=== PATIENT | female | born 1970 | race Caucasian/White ===

== ENCOUNTER 2019-10-03 13:37 | Outpatient (CLI) | payer OTHER, SELFPAY ==
--- NOTE | 2019-10-03 | ECHO_ITS ---
Patient Info Name: Josie Vidales Age: 49 years : 1970 Gender: Female Ht: 64 in Wt: 170 lbs BSA: 1.89 m2 HR: 71 bpm BP: 106 / 64 mmHg Heart Rhythm: Sinus Rhythm Technical Quality: Good Exam Date: 10/03/2019 2:05 PM Exam Location: [facility] Room: echo lab Patient Status: Outpatient Admit Date: 10/03/2019 Staff Ordering Physician: Leonel Velasco MD Manager Filter: Karla South RDCS Attending Provider: Leonel Velasco MD Referring Physician: Krista BRO; Exam Type: CA echo doppler color flow Study Info Indications - HERCEPTIN TREATMENT BREAST CA Complete two-dimensional, color flow and Doppler transthoracic echocardiogram is performed. Summary 1. Left ventricular chamber dimension is normal. 2. Left ventricular systolic function is normal, estimated at 60-65%. 3. The left ventricular diastolic function is normal. 4. E/e' 8 is minimally elevated. 5. Global longitudinal strain is normal at -21.7%. 6. There is trace tricuspid valve regurgitation. 7. No pulmonary hypertension, estimated pulmonary arterial systolic pressure is 28 mmHg. 8. There is trace pulmonic regurgitation. Left Ventricle E/e' 8 is minimally elevated. Global longitudinal strain is normal at -21.7%. Left ventricular chamber dimension is normal. Left ventricular systolic function is normal, estimated at 60-65%. The left ventricular diastolic function is normal. Right Ventricle Right ventricular chamber dimension is normal. Right ventricular systolic function is normal. Left Atria Left atrial chamber dimension is normal. Right Atria Right atrial chamber dimension is normal. Aortic Valve The aortic valve is trileaflet. There is no aortic valve stenosis. There is no aortic valve regurgitation. Pulmonic Valve There is trace pulmonic regurgitation. Mitral Valve There is no mitral valve stenosis. There is no mitral valve regurgitation. Tricuspid Valve There is trace tricuspid valve regurgitation. No pulmonary hypertension, estimated pulmonary arterial systolic pressure is 28 mmHg. Pericardium/Pleural There is no pericardial effusion. Inferior Vena Cava Normal inferior vena cava with >50% collapse upon inspiration consistent with normal right atrial pressure, 5 mmHg. Aorta The aortic root size at the sinus of Valsalva is normal. Left Ventricular Outflow Tract Name Value Normal LVOT 2D LVOT Diameter 2.0 cm LVOT Doppler LVOT Peak Gradient 5 mmHg LVOT Mean Gradient 3 mmHg LVOT VTI 22 cm LVOT VTI/AV VTI Ratio 0.8 LVOT Stroke Volume 65 ml LVOT CO 13.6 l/min LVOT CI 7.2 l/min/m2 Pulmonic Valve Name Value Normal PV Doppler
== END 2019-10-03 13:38 | disposition home or self-care (01) ==
PROVIDERS: PCP Emergency Medicine; Visit Provider Internal Medicine Hematology & Oncology
DX: C50.811 Malignant neoplasm of overlapping sites of right female breast (principal); Z17.1 Estrogen receptor negative status [ER-]
CPT/HCPCS: 93306

== ENCOUNTER 2019-10-10 09:30 | Outpatient (RCR) | payer OTHER, SELFPAY ==
--- NOTE | 2019-09-16 15:11 | PTOPEVAL ---
PHYSICAL THERAPY EVALUATION AND PLAN OF CARE 09-16-2019 The PT evaluation was completed for the diagnosis of R breast and trunk lymphedema and neck pain. The plan of treatment is scheduled for 2x/week for 4 weeks. Thank you for referring Josie Vidales to [facility]. Please review, sign, date and return this plan of care BESSY. I agree with and certify that the following plan of care is medically necessary. Referring Physician Date Attending Provider: Chester Tucker MD CC: Dr. Emmanuelle Morley, per pt request *PT Outpatient Evaluation Document 09/16/19 13:50 KISHORE (Rec: 09/16/19 15:05 KISHORE [email or web address]) Therapy Assessment Status Assessment Status Assessment Status Evaluation Outpatient Past Medical History Past Medical History Source of Past Medical History Patient Neurological History Hx Neurological Disorders No Significant History Cardiovascular History Hx Cardiac Disorders No Significant History Respiratory History Hx Respiratory Disorders No Significant History Gastrointestinal History Hx Gastrointestinal Disorders No Significant History Genitourinary History Hx Genitourinary Disorders No Significant History Musculoskeletal History Hx Back Pain Yes Hx Other Musculoskeletal Disorders Yes: R subtalar fusion; C 5-6 fusion; HEENT History Hx Ear Surgery Yes: stents in tear ducts R and L eyes Evaluation Information Problem Diagnosis lymphedema Prior Level of Function Activity Level (Last 3 Months) 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 Right Activity of Daily Living Ability Independent Indoor/Home Mobility Independent Community Mobility Independent Stairs Ability Independent Functional Cognition (Planning, Shopping Independent , Taking Medications) Cooking Yes Cleaning Yes Laundry Yes Shopping Yes Driving Yes Home Setting Home Type House Living Situation With Minor Child,With Spouse Mobility Assistive Devices (Used Last 3 None Months) Comments Additional Prior Level of Function doing home tasks; working from Comments home due to coronavirus Pain Assessment Timing of Pain Assessment Timing of Pain Assessment Assessment Pain Scale Pain Scale Used Numeric (1 - 10) Self Report Pain Assessment Right Breast(s) Reported Pain Level 0 Pain Description Tender on Palpation Radicular Pain Location axilla and breast Pain Frequency Chronic Other Pain Description sore and tender to touch over
--- NOTE | 2019-10-03 15:45 | PCPTNOTE ---
today's appt canceled due to pt had herceptin treatment today;
--- NOTE | 2019-10-10 10:14 | PTOPEVAL ---
PHYSICAL THERAPY DISCHARGE 10-10-2019 Mrs. Vidales has received 7 PT sessions, from September 15 to today, for the diagnosis of breast lymphedema and neck pain. Compared to the initial evaluation: breast and trunk: pain rating has decreased, with decreased fibrosis over R breast, decreased trunk edema, less tenderness over breast--only area with fibrosis and tenderness is upper- outer breast and superior to node excision site; education has been completed with self lymph drainage and breast massage, skin precautions and she has a good compression bra and swell pad over lateral trunk. Her cervical pain rating is the same, with spasms over R and L cervical areas and pain with cervical rotation to the L and R; with the active rotation to the R has increased. She understanding good posture of her neck and shoulders and using heat, stretching and massage to decrease her neck pain. Deb states she has a follow up appointment with the neck surgeon in November. She agrees to discharge from PT services at this time. Thank you for referring Josie Vidales to [facility]. Please review, sign, date and return this discharge BESSY. I agree with and certify that the following plan of care is medically necessary. Referring Physician Date Attending Provider: Dr. Chester Tucker CC: Dr. Emmanuelle Morley, per pt request *PT Outpatient Discharge Document 10/10/19 09:32 KISHORE (Rec: 10/10/19 10:14 KISHORE [id number]) Subjective Information Deb reports: breast and Query Text:As Reported By Patient/ trunk are much better, not as Family painful and can move more; neck still painful and rotation hurts; doing self massage and home exercises for neck; agrees to discharge from PT services; has an appointment to see the neck surgeon in November; Pain Assessment Timing of Pain Assessment Timing of Pain Assessment Assessment Pain Scale Pain Scale Used Numeric (1 - 10) Self Report Pain Assessment Right Breast(s) Reported Pain Level 0 Pain Frequency Chronic Other Pain Description tenderness over knot on side of breast; no pain/tender in trunk Lowest Pain Intensity 0 Greatest Pain Intensity 2 Right Neck Reported Pain Level 4 Pain Description Soreness,Tightness Pain Frequency Continuous Other Pain Description bruised, tender; L > R cervical spine Lowest Pain Intensity 2 Greatest Pain Intensity 6 Other Pain Aggravating Factors rotation to L > R pain and stiffness Pain Behaviors Anxious,Grimacing Pain Score Pain Score 0,4: Self Report Cervical and Lumbar ROM Cervical ROM Cervical
== END 2019-10-11 08:31 | disposition home or self-care (01) ==
LOC: ANHPT 09:30
PROVIDERS: PCP Emergency Medicine; Visit Provider Radiology Radiation Oncology
DX: I89.0 Lymphedema, not elsewhere classified (principal); C50.811 Malignant neoplasm of overlapping sites of right female breast
CPT/HCPCS: 97012; 97140; 97162

== ENCOUNTER → 2019-12-17 13:46 | Outpatient (CLI) | payer OTHER, SELFPAY ==
--- NOTE | ~2019-12-17 | US_ITS ---
EXAMINATION:US venous doppler LE RT INDICATION:Right lower extremity swelling TECHNIQUE: Multiple grayscale, color flow and Doppler images of the right lower extremity deep venous systems were obtained and reviewed. COMPARISON:No prior studies for comparison. FINDINGS: The common femoral, superficial femoral and popliteal veins demonstrate normal respiratory variation, augmentation and compressibility. Color flow is also seen within the posterior tibial, pe roneal, greater saphenous and profunda veins. IMPRESSION: 1: No lower extremity deep venous thrombosis. Reviewed, dictated and finalized at location B.
== END ==
PROVIDERS: PCP Emergency Medicine; Visit Provider Internal Medicine Hematology & Oncology
DX: M79.89 Other specified soft tissue disorders (principal)
CPT/HCPCS: 93971

== ENCOUNTER 2020-01-14 08:14 | Outpatient (CLI) | payer OTHER, SELFPAY ==
[2020-01-14 09:08] LABS: Basophils Percent Auto 0.6 % (0.2-1.2); Eosinophils Absolute Auto 0.1 K/mm3 (0-0.3); Eosinophils Percent Auto 2.9 % (0-4.4); Hematocrit 40.5 % (37.0-47.0); Hemoglobin 13.5 g/dL (12.0-15.0); Immature Granulocyte Absolute 0.02 K/mm3 (0.00-0.031); Immature Granulocyte Percent A 0.4 % (0-0.5); Lymphocytes Absolute Auto 1.15 K/mm3 (0.9-3.2); Lymphocytes Percent Auto 23.6 % (18.3-44.2); Mean Corpuscular HGB Conc 33.3 g/dl (32-36); Mean Corpuscular Hemoglobin 29.8 pg (26-34); Mean Corpuscular Volume 89.4 fl (80-100); Mean Platelet Volume 10.6 fl (7.4-10.4); Monocytes Absolute Auto 0.4 K/mm3 (0.1-0.6); Monocytes Percent Auto 7.2 % (2.6-8.5); Neutrophils Absolute Auto 3.2 K/mm3 (1.3-6.7); Neutrophils Percent Auto 65.3 % (45.5-73.1); Platelet Count Result 169 k/mm3 (150-375); Red Blood Count 4.53 M/mm3 (4.2-5.4); Red Cell Distribution Width 12.4 % (11.5-14.5); White Blood Count 4.9 K/mm3 (4.5-10.0)
[2020-01-14 09:29] LABS: Alanine Aminotransferase 13 U/L (4-35); Albumin Level 4.3 g/dL (3.5-5.1); Alkaline Phosphatase 92 U/L (38-126); Anion Gap 7 mmol/L (8-16); Aspartate Amino Transferase 25 U/L (14-36); Bilirubin,Total 0.7 mg/dL (0.2-1.3); Blood Urea Nitrogen 17 mg/dL (7-17); Carbon Dioxide 25 mmol/L (22-30); Chloride 106 mmol/L (98-107); Estimated Glomerular Filt Rate > 60; Glucose 88 mg/dL (65-105); Sodium 138 mmol/L (137-145)
[2020-01-18 06:09] LABS: CA 27.29 42 U/mL (<38)
== END 2020-01-14 08:15 | disposition home or self-care (01) ==
PROVIDERS: PCP Emergency Medicine; Visit Provider Internal Medicine Hematology & Oncology
DX: C50.811 Malignant neoplasm of overlapping sites of right female breast (principal); Z17.1 Estrogen receptor negative status [ER-]
CPT/HCPCS: 36415; 80053; 85025; 86300

== ENCOUNTER 2020-01-28 08:07 | Outpatient (CLI) | payer OTHER, SELFPAY ==
--- NOTE | ~2020-01-28 | CT_ITS ---
EXAMINATION: CT chest abdomen pelvis w con DATE: 01/28/2020 08:35 INDICATION: Malignant neoplasm of overlapping sites of right breast. TECHNIQUE: Computed tomography (CT) of the chest, abdomen, and pelvis was performed with 100 mL Omnip aque 350 intravenous contrast. Automated exposure control and iterative reconstruction technique were employed. The dose-length product was 947.14 mGy-cm. COMPARISON: CT abdomen and pelvis 10/04/2018 FINDINGS: CHEST CT: There is mild scarring at the lung apices. There is mild radiation fibrosis in anterolateral right travis ng. No pleural effusion. The heart size is normal. No pericardial effusion. There are changes of righ t breast lumpectomy. There are surgical changes in right axilla. ABDOMEN/PELVIS CT: There are 4 mm and 5 mm cysts in the liver. The gallbladder is normal. There are cysts in the spleen measuring up to 11 mm. The pancreas, adrenal glands, and left kidney are normal. There is mild cortic al thinning of right kidney. There are no dilated loops of bowel. The appendix is normal. There are n o pathologically enlarged lymph nodes. There is no free intraperitoneal fluid. There is no osseous ma lignancy. IMPRESSION: 1. No evidence of metastatic disease. Reviewed, dictated and finalized at location B.
== END 2020-01-28 08:08 | disposition home or self-care (01) ==
PROVIDERS: PCP Emergency Medicine; Visit Provider Nurse Practitioner Adult Health
DX: C50.811 Malignant neoplasm of overlapping sites of right female breast (principal); Z17.1 Estrogen receptor negative status [ER-]
CPT/HCPCS: 71260; 74177; Q9967

== ENCOUNTER 2020-04-08 11:42 | Outpatient (CLI) | payer OTHER, SELFPAY ==
[2020-04-08 12:24] LABS: Basophils Percent Auto 0.6 % (0.2-1.2); Eosinophils Absolute Auto 0.1 K/mm3 (0-0.3); Eosinophils Percent Auto 1.7 % (0-4.4); Hematocrit 40.1 % (37.0-47.0); Hemoglobin 13.4 g/dL (12.0-15.0); Immature Granulocyte Absolute 0.02 K/mm3 (0.00-0.031); Immature Granulocyte Percent A 0.4 % (0-0.5); Lymphocytes Percent Auto 30.2 % (18.3-44.2); Mean Corpuscular HGB Conc 33.4 g/dl (32-36); Mean Corpuscular Hemoglobin 30.2 pg (26-34); Mean Corpuscular Volume 90.3 fl (80-100); Mean Platelet Volume 10.7 fl (7.4-10.4); Monocytes Absolute Auto 0.4 K/mm3 (0.1-0.6); Monocytes Percent Auto 7.6 % (2.6-8.5); Neutrophils Absolute Auto 3.2 K/mm3 (1.3-6.7); Neutrophils Percent Auto 59.5 % (45.5-73.1); Platelet Count Result 173 k/mm3 (150-375); Red Blood Count 4.44 M/mm3 (4.2-5.4); Red Cell Distribution Width 12.6 % (11.5-14.5); White Blood Count 5.3 K/mm3 (4.5-10.0)
[2020-04-08 12:35] LABS: Alanine Aminotransferase 15 U/L (4-35); Albumin Level 4.3 g/dL (3.5-5.1); Alkaline Phosphatase 90 U/L (38-126); Anion Gap 9 mmol/L (8-16); Aspartate Amino Transferase 23 U/L (14-36); Bilirubin,Total 0.7 mg/dL (0.2-1.3); Blood Urea Nitrogen 17 mg/dL (7-17); Calcium 9.3 mg/dL (8.4-10.2); Carbon Dioxide 30 mmol/L (22-30); Chloride 101 mmol/L (98-107); Estimated Glomerular Filt Rate > 60; Glucose 61 mg/dL (65-105); Potassium 3.6 mmol/L (3.4-5.0); Sodium 140 mmol/L (137-145)
[2020-04-12 21:42] LABS: CA 27.29 41 U/mL (<38)
== END 2020-04-08 11:43 | disposition home or self-care (01) ==
LOC: ANHLAB 11:45
PROVIDERS: PCP Emergency Medicine; Visit Provider Nurse Practitioner Adult Health
DX: C50.811 Malignant neoplasm of overlapping sites of right female breast (principal); Z17.1 Estrogen receptor negative status [ER-]
CPT/HCPCS: 36415; 80053; 85025; 86300

== ENCOUNTER 2020-05-05 16:08 | Outpatient (CLI) | payer OTHER, SELFPAY ==
[2020-05-05 17:03] LABS: CRP < 0.5 mg/dL (<1.0); Rheumatoid Factor < 8.6 IU/ML (<12)
[2020-05-05 17:11] LABS: Erythrocyte Sedimentation Rate 14 mm/hr (0-20)
[2020-05-07 12:52] LABS: HLA B27 Negative (Negative)
== END 2020-05-05 16:09 | disposition home or self-care (01) ==
LOC: ANHLAB 16:10
PROVIDERS: PCP Emergency Medicine; Visit Provider Podiatrist Foot & Ankle Surgery
DX: M77.32 Calcaneal spur, left foot (principal)
CPT/HCPCS: 36415; 85652; 86038; 86140; 86430; 86812

== ENCOUNTER 2020-06-19 00:38 | Outpatient (CLI) | payer OTHER, SELFPAY ==
[2020-06-19 18:46] LABS: SARS-CoV-2 RNA PCR Negative
== END 2020-06-19 00:39 | disposition home or self-care (01) ==
LOC: ANHCOVIDDT 00:38
PROVIDERS: PCP Emergency Medicine; Visit Provider Internal Medicine Gastroenterology
DX: Z01.812 Encounter for preprocedural laboratory examination (principal); Z20.822 Contact with and (suspected) exposure to COVID-19
CPT/HCPCS: C9803; U0003; U0005

== ENCOUNTER 2020-06-22 02:40 | Day surgery (SDC) | payer OTHER, SELFPAY ==
[2020-06-11 10:33] VITALS: BMI 29.9
[2020-06-22 08:40] VITALS: BP 107/61; PULSE 75; RESP 16; TEMP 36.8; O2SAT 100
[2020-06-22] MEDS: LACTATED RINGERS 1,000 ML 150 ML IV CONT (08:51)
--- NOTE | 2020-06-22 09:43 | WPDANESEPPF ---
Anes - Initial Pre Proc Eval Procedure: Operation Date: 06/22/20 10:15 Proposed Procedures p Screening Colonoscopy - Gokul Day MD Date/Time: 06/22/20 09:43 Surgeon: Gokul Day MD Pre Op Diagnosis: Neoplasm Screening Patient Data Age: 50 Gender: F Height: 5 ft 4 in Weight: 79.1 kg Last Vital Signs Temp 98.3 F 06/22/20 08:40 Pulse 75 06/22/20 08:40 Resp 16 06/22/20 08:40 BP 107/61 06/22/20 08:40 Pulse Ox 100 06/22/20 08:40 Allergies Allergy/AdvReac Type Severity Reaction Status Date / Time oxycodone Allergy Intermediate Itching Verified 06/22/20 08:39 Home Medications Medication Instructions Recorded Confirmed Type cholecalciferol (vitamin D3) 10 400 unit PO DAILY 04/15/19 06/22/20 History mcg (400 unit) capsule multivitamin 1 cap PO DAILY 04/15/19 06/22/20 History estradiol 1 g VAGINAL 3XW 05/11/20 06/22/20 History Patient hx anesthesia problems: none Family hx anesthesia problems: none PMFSH Past Medical History Medical History Arthritis Hyperlipidemia Surgical History Surgical History H/O lumpectomy H/O surgical fusion joint Family History Family History Father Hypertension Family history of diabetes mellitus in first degree relative Family history of dementia Family history of malignant neoplasm of urinary bladder Mother Family history of anemia Sibling Family history of diabetes mellitus in first degree relative Other Cerebrovascular accident Diabetes mellitus Family history of malignant neoplasm Social History Social History Smoking status: Never smoker Alcohol intake: current Substance use: never Substance use type: does not use Living arrangements: with family Gender identity (if verbalized by the patient): Female Spiritual care concerns: No Anes - Eval Final PreProcedure Day of Procedure 06/22/20 09:43 Patient weight: normal Heart: regular rate and rhythm Lungs: clear to auscultation Airway: Mallampati scale class II Neurological: alert and oriented Last oral intake: >/= 8 hours ASA classification: II Emergent: no Anesthetic plan: proceed Anesthesia type and monitoring: general GIVS and standard monitoring Informed Consent: The patient's anesthetic plan and its attendant risks and benefits were discussed with the patient/family/POA. Questions were solicited and answers provided to the satisfaction of the patient/family/POA.
--- NOTE | 2020-06-22 09:58 | PM.HPGS ---
History of Present Illness History of Present Illness Consent: Risks, benefits, and alternatives have been discussed and questions answered. Patient agrees to proceed with procedure. Chief complaint: Neoplasm Screening Narrative: Josie Vidales is a 50 year old female here for first screening colonoscopy Review of Systems Constitutional: Constitutional: Denies headache(s) and Denies weakness Eyes: Eyes: Denies blurry vision ENT: Reports Normal hearing present, Denies headache(s) and Denies neck pain Cardiovascular: Cardiovascular: Denies chest pain and Denies dyspnea Respiratory: Respiratory: Denies dyspnea Gastrointestinal: Gastrointestinal: Reports no additional gastrointestinal complaints Genitourinary: Genitourinary: Denies dysuria Musculoskeletal: Musculoskeletal: Denies neck pain Integumentary/Breasts: Skin/Breast: Denies dry skin Neurologic: Reports Normal hearing present, Denies headache(s) and Denies weakness Psychiatric: Psychiatric: Denies anxiety Endocrine: Endocrine: Denies change in body appearance Hematologic/Lymphatic: Hematologic/Lymphatic: Denies easy bleeding Allergic/Immunologic: Allergic/Immunologic: Denies urticaria PMFSH Past Medical History Medical History Arthritis Hyperlipidemia Surgical History Surgical History H/O lumpectomy H/O surgical fusion joint Family History Family History Father Hypertension Family history of diabetes mellitus in first degree relative Family history of dementia Family history of malignant neoplasm of urinary bladder Mother Family history of anemia Sibling Family history of diabetes mellitus in first degree relative Other Cerebrovascular accident Diabetes mellitus Family history of malignant neoplasm Social History Social History Smoking status: Never smoker Alcohol intake: current Substance use: never Substance use type: does not use Living arrangements: with family Gender identity (if verbalized by the patient): Female Spiritual care concerns: No Meds Home Medications and Allergies Home Medications Medication Instructions Recorded Confirmed Type cholecalciferol (vitamin D3) 10 400 unit PO DAILY 04/15/19 06/22/20 History mcg (400 unit) capsule multivitamin 1 cap PO DAILY 04/15/19 06/22/20 History estradiol 1 g VAGINAL 3XW 05/11/20 06/22/20 History Allergies Allergy/AdvReac Type Severity Reaction Status Date / Time oxycodone Allergy Intermediate Itching Verified 06/22/20 08:39 Vital Signs Vital Signs - 24 hr 06/22/20 08:40 Temperature 98.3 F Pulse Rate 75 Respiratory Rate 16 Blood Pressure 107/61 Pulse Oximetry 100 Exam Const: General: comfortable and no acute distress HENMT: General nose exam: Normal nares present Eyes: General: appearance normal, both eyes and all related structures Neck: Neck: no JVD Resp: Auscultation: clear to auscultation bilaterally Cardio: Rate: regular rate Rhythm: regular rhythm GI: Inspection: non-distended GI Palp: Yes Soft to palpation Skin: General skin exam: normal color Neuro: General: gait normal Speech: normal speech Extrem: General: normal to inspection Psych: Mental Status: mental status grossly normal Assessment and Plan Assessment and plan (1) Colon cancer screening: Code(s): Z12.11 - Encounter for screening for malignant neoplasm of colon Status: Acute Assessment and Plan: proceed with colonoscopy
[2020-06-22 10:18] VITALS: BP 104/64; PULSE 71; RESP 18; O2SAT 97
[2020-06-22 10:28] VITALS: BP 105/69; PULSE 66; RESP 14; O2SAT 98
[2020-06-22 10:38] VITALS: BP 117/77; PULSE 57; RESP 16; O2SAT 99
== END 2020-06-22 10:55 | disposition home or self-care (01) ==
PROVIDERS: PCP Emergency Medicine; Visit Provider Internal Medicine Gastroenterology
PROC: 0DJD8ZZ Inspection of Lower Intestinal Tract, Via Natural or Artificial Opening Endoscopic (ICD-10-PCS; CPT 45378; principal; 2020-06-22 10:15)
DX: Z12.11 Encounter for screening for malignant neoplasm of colon (principal); K63.5 Polyp of colon; M19.90 Unspecified osteoarthritis, unspecified site; E78.5 Hyperlipidemia, unspecified
CPT/HCPCS: 45385; 88305; J2704; J7120

== ENCOUNTER 2020-07-09 08:22 | Outpatient (CLI) | payer OTHER, SELFPAY ==
[2020-07-09 08:49] LABS: Basophils Percent Auto 0.7 % (0.2-1.2); Eosinophils Absolute Auto 0.1 K/mm3 (0-0.3); Eosinophils Percent Auto 2.2 % (0-4.4); Hematocrit 38.4 % (37.0-47.0); Hemoglobin 13.1 g/dL (12.0-15.0); Immature Granulocyte Absolute 0.01 K/mm3 (0.00-0.031); Immature Granulocyte Percent A 0.2 % (0-0.5); Immature Platelet Fraction Pct 5.3 % (0.9-11.2); Lymphocytes Absolute Auto 1.34 K/mm3 (0.9-3.2); Lymphocytes Percent Auto 32.5 % (18.3-44.2); Mean Corpuscular HGB Conc 34.1 g/dl (32-36); Mean Corpuscular Hemoglobin 30.8 pg (26-34); Mean Corpuscular Volume 90.4 fl (80-100); Mean Platelet Volume 10.9 fl (7.4-10.4); Monocytes Absolute Auto 0.3 K/mm3 (0.1-0.6); Neutrophils Absolute Auto 2.3 K/mm3 (1.3-6.7); Neutrophils Percent Auto 56.4 % (45.5-73.1); Platelet Count Result 150 k/mm3 (150-375); Red Blood Count 4.25 M/mm3 (4.2-5.4); Red Cell Distribution Width 12.9 % (11.5-14.5); White Blood Count 4.1 K/mm3 (4.5-10.0)
[2020-07-09 08:59] LABS: Alanine Aminotransferase 15 U/L (4-35); Alkaline Phosphatase 79 U/L (38-126); Anion Gap 5 mmol/L (8-16); Aspartate Amino Transferase 22 U/L (14-36); Bilirubin,Total 0.7 mg/dL (0.2-1.3); Blood Urea Nitrogen 16 mg/dL (7-17); Calcium 8.9 mg/dL (8.4-10.2); Carbon Dioxide 27 mmol/L (22-30); Chloride 109 mmol/L (98-107); Estimated Glomerular Filt Rate > 60; Glucose 87 mg/dL (65-105); Sodium 141 mmol/L (137-145)
[2020-07-12 06:00] LABS: CA 27.29 31 U/mL (<38)
== END 2020-07-09 08:23 | disposition home or self-care (01) ==
PROVIDERS: PCP Emergency Medicine; Visit Provider Nurse Practitioner Adult Health
DX: C50.811 Malignant neoplasm of overlapping sites of right female breast (principal); Z17.1 Estrogen receptor negative status [ER-]
CPT/HCPCS: 36415; 80053; 85025; 85055; 86300

== ENCOUNTER 2020-07-16 15:00 | Outpatient (RCR) | payer OTHER, SELFPAY ==
--- NOTE | 2020-05-19 11:12 | PTOPEVAL ---
Thank you for referring Josie Vidales to [facility] [place].? The patient is scheduled to be seen for therapy? 2x/week for 5 weeks. Please review, sign, date and return this plan of care BESSY. I agree with and certify that the following plan of care is medically necessary. Referring Physician Date Attending Provider: Dorian Zhu JR, MD *PT Outpatient Evaluation Start: 05/19/20 09:25 Freq: Status: Active Protocol: Document 05/19/20 09:28 WALLACE (Rec: 05/19/20 10:25 WALLACE [id number]) Therapy Assessment Status Assessment Status Assessment Status Evaluation Outpatient Past Medical History Past Medical History Source of Past Medical History Patient,Recalled from Previous Visit, Confirmed with Patient /Family Neurological History Hx Neurological Disorders No Significant History Cardiovascular History Hx Cardiac Disorders No Significant History Respiratory History Hx Respiratory Disorders No Significant History Gastrointestinal History Hx Gastrointestinal Disorders No Significant History Genitourinary History Hx Genitourinary Disorders No Significant History Musculoskeletal History Hx Back Pain Yes Hx Other Musculoskeletal Disorders Yes: R subtalar fusion; C 5-6 fusion; HEENT History Hx Ear Surgery Yes: stents in tear ducts R and L eyes Other History Hx Cancer Yes: breast CA Hx Chemotherapy Yes: 11/22 last treatment Hx Radiation Therapy Yes: 05/07/19- last treatment Evaluation Information Problem Diagnosis left foot plantarfasciitis Onset years Cause unknown Subjective Information She reports she has been Query Text:As Reported By Patient/ having left foot pain for Family years. She reports increased pain with prolonged standing. She has a stand up desk for work which causes increased pain. C/o ache pain of the foot. She is stretching her calf, wear her custom orthtotics, ice. She has received previous laser treatment by a chiro without improved symptoms. Denies pain waking her from sleep. She has increased pain with initial WB on feet in the morning, but is slightly improved.
--- NOTE | 2020-06-23 16:02 | PTOPEVAL ---
Thank you for referring Josie Vidales to [facility].? The patient is scheduled to be seen for therapy? 2x/week for 3 weeks. Please review, sign, date and return this plan of care BESSY. I agree with and certify that the following plan of care is medically necessary. Referring Physician Date Attending Provider: Dorian Zhu JR, MD *PT Outpatient Evaluation Start: 05/19/20 09:25 Freq: Status: Active Protocol: Document 06/23/20 15:00 [facility] (Rec: 06/23/20 15:57 CAP [id number]) Therapy Assessment Status Assessment Status Assessment Status Re-evaluation Outpatient Past Medical History Past Medical History Source of Past Medical History Patient,Recalled from Previous Visit, Confirmed with Patient /Family Neurological History Hx Neurological Disorders No Significant History Cardiovascular History Hx Cardiac Disorders No Significant History Respiratory History Hx Respiratory Disorders No Significant History Gastrointestinal History Hx Gastrointestinal Disorders No Significant History Genitourinary History Hx Genitourinary Disorders No Significant History Musculoskeletal History Hx Back Pain Yes Hx Other Musculoskeletal Disorders Yes: R subtalar fusion; C 5-6 fusion; Hematological History Hx Hematological Disorders No Significant History Endocrine History Hx Endocrine Disorders No Significant History HEENT History Hx Ear Surgery Yes: stents in tear ducts R and L eyes Integumentary History Hx Skin Disorders No Significant History Reproductive History Hx Post Menopausal Yes Other History Hx Cancer Yes: breast CA Hx Chemotherapy Yes: 11/22 last treatment Hx Radiation Therapy Yes: 05/07/19- last treatment Evaluation Information Problem Diagnosis left foot plantarfasciitis Onset years Cause unknown Additional Evaluation Detail She reports she has been having left foot pain for years. She is stretching her calf, wear her custom orthtotics, ice. She has received previous laser treatment by a chiro without improved symptoms. Subjective Information She reports her foot pain is Query Text:As Reported By Patient/ greater today. She cont to Family have increased foot pain with prolonged standing. Reports the pain takes longer to reach
--- NOTE | 2020-07-16 15:54 | PTOPEVAL ---
Thank you for referring Josie Vidales to [facility].? Pt has received 16 therapy visits to address impairments with left LE/foot region. As result of skilled therapy she demonstrates progress with LE strength, joint motion, tissue restriction and tolerance with daily and fitness activities. She has achieved her therapy goals at this time. She is indep with her HEP and understanding for self-management of symptoms at home. DC skilled therapy services at this time. Please review, sign, date and return this discharge note I agree with and certify that the following plan of care is medically necessary. Referring Physician Date Attending Provider: Dorian Zhu JR, MD Physical Therapy Discharge Note Problem Diagnosis left foot plantar fasciitis Onset years Cause unknown Additional Evaluation Detail She reports she has been having left foot pain for years. She is stretching her calf, wear her custom orthtotics, ice. She has received previous laser treatment by a chiro without improved symptoms. Subjective Information She reports improved pain at Query Text:As Reported By Patient/ rest and with walking. She is Family able to stand for at least 1 hr without limitations. She is walking 2 miles on TM at 1.5 incline 3.3MPH without increased pain or symptoms. No changes in her symptoms with the walk. The pain is not having pain at night or the morning with initial WB. She is inconsistent with use of ice. Pain Assessment Reported Pain Level 0 Pain Description Tender on Palpation,Tightness Pain Frequency Intermittent Greatest Pain Intensity 1 Lower Extremity Muscle Strength Testing Bilateral Hip Flexion Strength 5 Normal Hip Extension Strength 5 Normal Hip Abduction Strength 4- Good - Palpation Assessment Palpation min tenderness of left proximal post tib muscle and proximal peroneal muscle no tenderness of gastroc muscle Special Tests-Lower Extremity Hip Special Tests Trendelenburg Sign Positive Left,Positive Right Hip Special Test Comments SLS: left 30 sec, right: 30 sec, lateral trunk lean to assist with maintaining.
== END 2020-07-17 07:48 | disposition home or self-care (01) ==
LOC: ANHPT 15:00
PROVIDERS: PCP Emergency Medicine; Visit Provider Podiatrist Foot & Ankle Surgery
DX: M72.2 Plantar fascial fibromatosis (principal)
CPT/HCPCS: 97014; 97033; 97110; 97140; 97161; G0283

== ENCOUNTER 2020-10-05 10:39 | Outpatient (CLI) | payer OTHER, SELFPAY ==
[2020-10-05 12:09] LABS: Basophils Percent Auto 0.4 % (0.2-1.2); Eosinophils Absolute Auto 0.1 K/mm3 (0-0.3); Hematocrit 41.2 % (37.0-47.0); Hemoglobin 14.1 g/dL (12.0-15.0); Immature Granulocyte Absolute 0.01 K/mm3 (0.00-0.031); Immature Granulocyte Percent A 0.2 % (0-0.5); Lymphocytes Absolute Auto 1.51 K/mm3 (0.9-3.2); Lymphocytes Percent Auto 27.7 % (18.3-44.2); Mean Corpuscular HGB Conc 34.2 g/dl (32-36); Mean Corpuscular Hemoglobin 30.5 pg (26-34); Mean Platelet Volume 11.2 fl (7.4-10.4); Monocytes Absolute Auto 0.3 K/mm3 (0.1-0.6); Neutrophils Absolute Auto 3.5 K/mm3 (1.3-6.7); Neutrophils Percent Auto 63.7 % (45.5-73.1); Platelet Count Result 178 k/mm3 (150-375); Red Blood Count 4.63 M/mm3 (4.2-5.4); Red Cell Distribution Width 12.5 % (11.5-14.5); White Blood Count 5.5 K/mm3 (4.5-10.0)
[2020-10-05 12:18] LABS: Alanine Aminotransferase 14 U/L (4-35); Albumin Level 4.6 g/dL (3.5-5.1); Alkaline Phosphatase 81 U/L (38-126); Anion Gap 6 mmol/L (8-16); Aspartate Amino Transferase 23 U/L (14-36); Bilirubin,Total 0.3 mg/dL (0.2-1.3); Blood Urea Nitrogen 17 mg/dL (7-17); Calcium 9.6 mg/dL (8.4-10.2); Carbon Dioxide 28 mmol/L (22-30); Chloride 105 mmol/L (98-107); Estimated Glomerular Filt Rate 59; Glucose 85 mg/dL (65-105); Potassium 4.2 mmol/L (3.4-5.0); Sodium 139 mmol/L (137-145)
[2020-10-08 05:34] LABS: CA 15-3 29 U/mL (<32)
== END 2020-10-05 10:40 | disposition home or self-care (01) ==
PROVIDERS: PCP Emergency Medicine; Visit Provider Internal Medicine Hematology & Oncology
DX: C50.811 Malignant neoplasm of overlapping sites of right female breast (principal); Z17.1 Estrogen receptor negative status [ER-]
CPT/HCPCS: 36415; 80053; 85025; 86300

== ENCOUNTER → 2020-10-29 15:44 | Outpatient (REF) | payer OTHER, SELFPAY | LOC: ANHLAB 15:44 | PROVIDERS: PCP Emergency Medicine; Visit Provider Nurse Practitioner | DX: L98.9 Disorder of the skin and subcutaneous tissue, unspecified (principal) | CPT/HCPCS: 88305 ==

== ENCOUNTER → 2020-11-30 16:37 | Outpatient (REF) | payer OTHER, SELFPAY | LOC: ANHLAB 16:37 | PROVIDERS: PCP Emergency Medicine; Visit Provider Nurse Practitioner | DX: D22.71 Melanocytic nevi of right lower limb, including hip (principal) | CPT/HCPCS: 88305 ==

== ENCOUNTER 2021-01-05 11:09 | Outpatient (CLI) | payer OTHER, SELFPAY ==
[2021-01-05 11:55] LABS: Basophils Percent Auto 0.5 % (0.2-1.2); Eosinophils Absolute Auto 0.1 K/mm3 (0-0.3); Eosinophils Percent Auto 1.1 % (0-4.4); Hematocrit 44.3 % (37.0-47.0); Hemoglobin 14.4 g/dL (12.0-15.0); Immature Granulocyte Absolute 0.01 K/mm3 (0.00-0.031); Immature Granulocyte Percent A 0.2 % (0-0.5); Lymphocytes Percent Auto 23.8 % (18.3-44.2); Mean Corpuscular HGB Conc 32.5 g/dl (32-36); Mean Corpuscular Volume 92.3 fl (80-100); Mean Platelet Volume 10.5 fl (7.4-10.4); Monocytes Absolute Auto 0.3 K/mm3 (0.1-0.6); Monocytes Percent Auto 5.9 % (2.6-8.5); Neutrophils Absolute Auto 3.7 K/mm3 (1.3-6.7); Neutrophils Percent Auto 68.5 % (45.5-73.1); Platelet Count Result 155 k/mm3 (150-375); Red Cell Distribution Width 12.4 % (11.5-14.5); White Blood Count 5.5 K/mm3 (4.5-10.0)
[2021-01-05 12:10] LABS: Alanine Aminotransferase 15 U/L (4-35); Albumin Level 4.8 g/dL (3.5-5.1); Alkaline Phosphatase 84 U/L (38-126); Anion Gap 12 mmol/L (8-16); Aspartate Amino Transferase 23 U/L (14-36); Bilirubin,Total 0.8 mg/dL (0.2-1.3); Blood Urea Nitrogen 18 mg/dL (7-17); Calcium 9.7 mg/dL (8.4-10.2); Carbon Dioxide 24 mmol/L (22-30); Chloride 102 mmol/L (98-107); Estimated Glomerular Filt Rate > 60; Glucose 78 mg/dL (65-110); Sodium 138 mmol/L (137-145)
[2021-01-07 12:10] LABS: CA 15-3 34 U/mL (<32)
== END 2021-01-05 11:10 | disposition home or self-care (01) ==
PROVIDERS: PCP Emergency Medicine; Visit Provider Internal Medicine Hematology & Oncology
DX: C50.811 Malignant neoplasm of overlapping sites of right female breast (principal); Z17.1 Estrogen receptor negative status [ER-]
CPT/HCPCS: 36415; 80053; 85025; 86300

== ENCOUNTER 2021-01-18 07:46 | Outpatient (CLI) | payer OTHER, SELFPAY ==
--- NOTE | ~2021-01-18 | NM_ITS ---
EXAMINATION: NM bone scan whole body DATE: 01/18/2021 11:22 INDICATION: Right breast cancer TECHNIQUE: 4.29 mCi Tc-99m HDP was administered intravenously. Delayed whole-body scintigrams were o btained. COMPARISON: CT of the chest, abdomen and pelvis dated 01/28/2020 FINDINGS: Mild joint centered uptake at the patellofemoral compartments of both knees, at the left acromioclavi cular joint and at the bilateral hindfeet. No other suspicious foci of abnormal bone uptake to sugges t osseous metastatic disease. IMPRESSION: 1. No osseous metastatic disease. Reviewed, dictated and finalized at location A.
== END 2021-01-18 07:47 | disposition home or self-care (01) ==
PROVIDERS: PCP Emergency Medicine; Visit Provider Internal Medicine Hematology & Oncology
DX: C50.811 Malignant neoplasm of overlapping sites of right female breast (principal); Z17.1 Estrogen receptor negative status [ER-]
CPT/HCPCS: 78306; A9561

== ENCOUNTER 2021-04-06 11:52 | Outpatient (CLI) | payer OTHER, SELFPAY ==
[2021-04-06 12:30] LABS: Basophils Percent Auto 0.3 % (0.2-1.2); Eosinophils Absolute Auto 0.1 K/mm3 (0-0.3); Eosinophils Percent Auto 1.1 % (0-4.4); Hematocrit 44.5 % (37.0-47.0); Hemoglobin 14.6 g/dL (12.0-15.0); Immature Granulocyte Absolute 0.02 K/mm3 (0.00-0.031); Immature Granulocyte Percent A 0.3 % (0-0.5); Lymphocytes Absolute Auto 1.74 K/mm3 (0.9-3.2); Lymphocytes Percent Auto 26.7 % (18.3-44.2); Mean Corpuscular HGB Conc 32.8 g/dl (32-36); Mean Corpuscular Hemoglobin 31.1 pg (26-34); Mean Corpuscular Volume 94.7 fl (80-100); Mean Platelet Volume 10.7 fl (7.4-10.4); Monocytes Absolute Auto 0.3 K/mm3 (0.1-0.6); Monocytes Percent Auto 5.2 % (2.6-8.5); Neutrophils Absolute Auto 4.3 K/mm3 (1.3-6.7); Neutrophils Percent Auto 66.4 % (45.5-73.1); Platelet Count Result 170 k/mm3 (150-375); Red Cell Distribution Width 12.7 % (11.5-14.5); White Blood Count 6.5 K/mm3 (4.5-10.0)
[2021-04-06 12:45] LABS: Alanine Aminotransferase 16 U/L (4-35); Albumin Level 4.7 g/dL (3.5-5.1); Alkaline Phosphatase 77 U/L (38-126); Anion Gap 10 mmol/L (8-16); Aspartate Amino Transferase 24 U/L (14-36); Bilirubin,Total 1.1 mg/dL (0.2-1.3); Blood Urea Nitrogen 16 mg/dL (7-17); Calcium 9.6 mg/dL (8.4-10.2); Carbon Dioxide 30 mmol/L (22-30); Chloride 102 mmol/L (98-107); Estimated Glomerular Filt Rate > 60; Glucose 89 mg/dL (65-110); Potassium 4.1 mmol/L (3.4-5.0); Sodium 142 mmol/L (137-145)
[2021-04-10 07:54] LABS: CA 15-3 27 U/mL (<32)
== END 2021-04-06 11:53 | disposition home or self-care (01) ==
LOC: ANHLAB 11:57
PROVIDERS: PCP Emergency Medicine; Visit Provider Internal Medicine Hematology & Oncology
DX: C50.811 Malignant neoplasm of overlapping sites of right female breast (principal); Z17.1 Estrogen receptor negative status [ER-]
CPT/HCPCS: 36415; 80053; 85025; 86300

== ENCOUNTER 2021-08-05 10:11 | Outpatient (CLI) | payer OTHER, SELFPAY ==
[2021-08-05 10:40] LABS: Basophils Percent Auto 0.7 % (0.2-1.2); Eosinophils Absolute Auto 0.1 K/mm3 (0-0.3); Eosinophils Percent Auto 1.9 % (0-4.4); Hemoglobin 14.2 g/dL (12.0-15.0); Immature Granulocyte Absolute 0.02 K/mm3 (0.00-0.031); Immature Granulocyte Percent A 0.4 % (0-0.5); Immature Platelet Fraction Pct 7.2 % (0.9-11.2); Lymphocytes Absolute Auto 1.55 K/mm3 (0.9-3.2); Lymphocytes Percent Auto 28.8 % (18.3-44.2); Mean Corpuscular Hemoglobin 30.5 pg (26-34); Mean Corpuscular Volume 92.3 fl (80-100); Monocytes Absolute Auto 0.3 K/mm3 (0.1-0.6); Monocytes Percent Auto 5.8 % (2.6-8.5); Neutrophils Absolute Auto 3.4 K/mm3 (1.3-6.7); Neutrophils Percent Auto 62.4 % (45.5-73.1); Platelet Count Result 155 k/mm3 (150-375); Red Blood Count 4.66 M/mm3 (4.2-5.4); Red Cell Distribution Width 12.4 % (11.5-14.5); White Blood Count 5.4 K/mm3 (4.5-10.0)
[2021-08-05 10:53] LABS: Alanine Aminotransferase 14 U/L (4-35); Albumin Level 4.6 g/dL (3.5-5.1); Alkaline Phosphatase 80 U/L (38-126); Anion Gap 7 mmol/L (8-16); Aspartate Amino Transferase 23 U/L (14-36); Bilirubin,Total 0.6 mg/dL (0.2-1.3); Blood Urea Nitrogen 19 mg/dL (7-17); Calcium 8.9 mg/dL (8.4-10.2); Carbon Dioxide 29 mmol/L (22-30); Chloride 103 mmol/L (98-107); Estimated Glomerular Filt Rate > 60; Glucose 89 mg/dL (65-110); Potassium 4.3 mmol/L (3.4-5.0); Sodium 139 mmol/L (137-145)
[2021-08-08 06:45] LABS: CA 15-3 26 U/mL (<32)
== END 2021-08-05 10:12 | disposition home or self-care (01) ==
PROVIDERS: PCP Emergency Medicine; Visit Provider Internal Medicine Hematology & Oncology
DX: C50.811 Malignant neoplasm of overlapping sites of right female breast (principal); Z17.1 Estrogen receptor negative status [ER-]
CPT/HCPCS: 36415; 80053; 85025; 85055; 86300

== ENCOUNTER 2022-06-28 07:46 | Outpatient (CLI) | payer OTHER, SELFPAY ==
--- NOTE | ~2022-06-28 | PE_ITS ---
EXAMINATION: PET skull to mid thigh DATE: 06/28/2022 09:38 INDICATION: Malignant neoplasm of overlapping sites of the right breast. TECHNIQUE: Blood glucose level was 86 mg/dL. 9.874 mCi of 18-fluorodeoxyglucose (18-FDG) was administ ered i.v. Low dose computed tomography (CT) images were acquired from the base of the brain to the pr oximal thighs for attenuation correction and anatomic localization. Positron emission tomography (PET ) images were acquired in the same distribution beginning 49 minutes after injection. Images includin g fused PET/CT images were reconstructed in axial, coronal, and sagittal planes. Automated exposure c ontrol technique was employed. The dose-length product was 541.76mGy-cm. COMPARISON: None FINDINGS: Head/neck: There is symmetric increased activity in the oral cavity, palatine tonsils, parotid glands, submandi bular glands, laryngeal muscles and ocular muscles without CT correlate, likely physiologic. No patho logically enlarged cervical lymphadenopathy or suspicious foci of increased FDG uptake in the visuali zed head or neck. Chest: Lungs are clear. There are no suspicious pulmonary nodules, pneumonia, pulmonary edema or pleural eff usion. Heart size is normal. No pericardial effusion. Thoracic aorta is normal in caliber. There are surgical clips with associated mild linear scarring at the site of a prior tiny seroma with a couple associated surgical clips in the deep lateral right breast consistent with provided history of prior excisional biopsy for right breast cancer. There is only minimal associated FDG activity with maximal SUV of 1.9 which remains well below the level of the liver. No more nodular soft tissue density or f ocally more avid FDG uptake to suggest residual/recurrent disease. No pathologically enlarged or FDG avid thoracic lymphadenopathy. Abdomen/pelvis/proximal thighs: Physiologic renal accumulation and excretion of FDG activity in the kidneys, bladder and along portio ns of ureters. Normal degree and heterogenous pattern of increased uptake throughout the liver withou t radiologic correlate or dominant FDG avid lesion. The gallbladder, pancreas, spleen and bilateral a drenal glands are normal. Mild uptake scattered throughout the bowels without radiologic correlate, a lso likely physiologic. Bladder, uterus and bilateral adnexa are unremarkable. No other abnormal foci of increased FDG uptake or pathologically enlarged lymphadenopathy in the abdomen, pelvis or proxima l thighs. Musculoskeletal: There is asymmetric likely physiologic muscular activity without radiologic correlate about the right shoulder along the right scalene, superior right pectoralis major and proximal right biceps brachii muscles. There is additional likely physiologic muscular activity in the posterior paraspinal muscula ture along the right side of the T11-L1 spinous processes also without radiologic correlate. No suspi cious lytic, blastic or FDG avid bone lesions. IMPRESSION: 1. Postoperative change of prior excisional biopsy of a reported right breast cancer with no evident residual, locally recurrent or metastatic disease. Reviewed, dictated and finalized at location L. 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 Postoperative change of prior excisional biopsy of a reported right breast c ancer with no evident residual, locally recurrent or metastatic disease.
[2022-06-28 08:08] LABS: Glucose Point of Care 86 mg/dl (65-105)
== END 2022-06-28 07:47 | disposition home or self-care (01) ==
PROVIDERS: PCP Family Medicine; Visit Provider Internal Medicine Hematology & Oncology
DX: C50.811 Malignant neoplasm of overlapping sites of right female breast (principal)
CPT/HCPCS: 78815; A9552

== ENCOUNTER 2024-03-15 03:32 | Day surgery (SDC) | payer OTHER, SELFPAY ==
[2024-03-05 13:37] VITALS: BMI 30.9
--- NOTE | 2024-03-05 13:50 | PC.NURSE ---
Report to the Outpatient Waiting Room, entrance under the green pavilion located off [facility], at time _08:00AM on date _03/15/24 . Planned Procedure Time: _10:00AM .? Time changes happen often and if your time is changed the preop area will call you the afternoon before. - You and your visitor will be asked to self-screen and do not enter if you have any COVID symptoms. Please call surgeon if you need to reschedule. - A mask is optional within the hospital at this time. Patients may have clear liquids (water, carbonated beverages, clear teas, apple juice) until 3 hours prior to surgery with a maximum of 20 ounces. - No food from midnight until time of surgery and no smoking Take only the following medications with a SIP of water on the morning of surgery: __NONE DO NOT STOP ANY OF YOUR OTHER PRESCRIPTION MEDICATIONS PRIOR TO SURGERY EXCEPT THE FOLLOWING Medications to discontinue per physician VITAMIN D3 Date to take last dose____03/12/24 Please no make-up, nail [place], hairspray, perfume, deodorant, or body powder the day of surgery.? No jewelry (including any body piercings) or valuables the day of surgery, leave them at home.? Please take a shower or bath the night before, or the morning of, surgery with an antibacterial soap.? Wear comfortable, loose fitting clothing.? - Jewelry must be removed prior to entering the operating room.? Rings and piercings that are not removed may be cut off. - The hospital will not accept responsibility for valuables.? - Please leave all valuables, including medications, at home the day of surgery. If you are going home after surgery, a licensed local delivery truck driver must drive you home.? - NO public transportation without another adult if you receive anesthesia. - We recommend that an adult stay with you for 24 hours following discharge. - We also recommend that you do not drive, make important decision, drink alcoholic beverages, or take any drugs that were not prescribed by your health care provider for at least 24 hours after your discharge time. Follow any additional instructions given to you from your surgeon. Telephone instructions given to __MACY and asked if any additional questions and then verbalized understanding. Patient advised to call surgeon office or pre surgery nurse liaison [phone] if any additional questions.
[2024-03-15] VITALS (10 sets, daily range): BP systolic 118–142; BP diastolic 52–78; PULSE 52–80; RESP 10–17; TEMP 36–36.7; O2SAT 98–100
--- NOTE | 2024-03-15 07:20 | WPDHPUPDATE1 ---
History and Physical Update Update Date/Time: 03/15/24 07:20 History and Physical has been reviewed, including an updated exam of the patient. There are NO changes in the patient's condition. Risks, benefits, and alternatives have been discussed and questions answered. Patient agrees to proceed with procedure.
--- NOTE | 2024-03-15 08:40 | WPDANESEPPF ---
Anes - Initial Pre Proc Eval Procedure: Operation Date: 03/15/24 10:00 Proposed Procedures p Repair Peroneal Tendons Left Ankle, Tenosynovectomy Peroneal Tendons Left Ankle - Dorian Zhu Jr., DPM Date/Time: 03/15/24 08:40 Surgeon: Dorian Zhu Jr., DPM Pre Op Diagnosis: peroneal tendonopathy left ankle Patient Data Age: 54 Gender: F Height: 1.63 m Weight: 81.8 kg Allergies Allergy/AdvReac Type Severity Reaction Status Date / Time oxycodone Allergy Intermediate Itching Verified 03/15/24 08:22 Home Medications Medication Instructions Recorded Confirmed Type cholecalciferol (vitamin D3) 10 400 unit PO DAILY 04/15/19 03/15/24 History mcg (400 unit) capsule estradiol 0.01% (0.1 mg/gram) 1 g vaginal 3XW 05/11/20 03/15/24 History vaginal cream Patient hx anesthesia problems: none Family hx anesthesia problems: none Results Review: All pre-operative results and documents have been reviewed as part of the pre-operative evaluation. [facility] Past Medical History Medical History Arthritis Hyperlipidemia Surgical History Surgical History H/O lumpectomy H/O surgical fusion joint Family History Family History Father Hypertension Family history of diabetes mellitus in first degree relative Family history of dementia Family history of malignant neoplasm of urinary bladder Mother Family history of anemia Sibling Family history of diabetes mellitus in first degree relative Other Cerebrovascular accident Diabetes mellitus Family history of malignant neoplasm Social History Social History Smoking status: Never smoker Alcohol intake: current Substance use: never Substance use type: does not use Living arrangements: with family Gender identity (if verbalized by the patient): Female Spiritual care concerns: No Anes - Eval Final PreProcedure Day of Procedure 03/15/24 08:40 Patient weight: obese Heart: regular rate and rhythm Lungs: clear to auscultation Airway: Mallampati scale class II Neurological: alert and oriented Last oral intake: >/= 8 hours ASA classification: II Emergent: no Anesthetic plan: proceed Anesthesia type and monitoring: general LMA and standard monitoring Results Review: All pre-operative results and documents have been reviewed as part of the pre-operative evaluation. Informed Consent: The patient's anesthetic plan and its attendant risks and benefits were discussed with the patient/family/POA. Questions were solicited and answers provided to the satisfaction of the patient/family/POA.
[2024-03-15] MEDS: LACTATED RINGERS 1,000 ML 30 ML IV CONT ×2 (09:20→12:02)
[2024-03-15] MEDS: ceFAZolin 2 GM/D5W 50 ML 2 GM/50 ML BAG IVPB (10:20)
[2024-03-15] MEDS: LIDOCAINE HCL 2% LOCAL INJ 20 ML VIAL 10 ML INFILTRATE (10:59)
--- NOTE | 2024-03-15 11:50 | W.PM.PROC2 ---
Procedure Note - Detailed Date of Procedure 03/15/24 Pre-op Diagnosis 1. Peroneal tendinopathy left ankle Post-op Diagnosis Other (1. Peroneal tendinopathy left ankle 2. Lateral ankle ligament instability left ) Procedure Performed 1. Primary repair of peroneal tendons left ankle 2. Lateral ankle ligament stabilization left ankle 3. Peroneal tenosynovectomy with resection of the low lying muscle belly to the peroneus brevis tendon Surgeon Dorian Zhu Jr., DPM Anesthesia General and Local Indications Painful left ankle with peroneal tendinopathy and ankle instability Findings 1. Narrow flat peroneal tendons with minimal split tearing and low lying muscle belly to the Peroneus Brevis Tendon 2. Instability to Anterior talar fibular ligament Description of Procedure The patient was brouht into the operating room, placed on the operating table in the lateral decubitus position. A pneumatic thigh tourniquet was placed about the patient's left thigh. Following general anesthesia, local anesthesia was obtained about the proximal leg utilizing 20 mL of local anesthesia of a one to two mix of 2% Lidocaine plain with 0.5% Marcaine plain just inferior and posterior to the neck of the fibula. The foot was then scrubbed, prepped, and draped in the usual aseptic manner. An Esmarch bandage was then used to exsanguinate the patient's foot and ankle and the pneumatic thigh tourniquet was then inflated. An incision was made starting 6 cm proximal to the lateral malleolus extending to the cuboid notch and 5th metatarsal base region. The incision was continued deep down through the subcutaneous tissues using sharp and blunt dissection. All bleeders were ligated and cauterized as necessary. I made a full length peroneal tendon sheath incision visualizing both the peroneus longus and brevis tendons in their entirety. As soon as the peroneus brevis sheath was incised yellow synovial fluid was expressed. Minimal tenosynovitis was noted and also a low lying muscle belly. These were both resected. I resected the split tearing and retubularized with 5-0 Prolene in simple interrupted suture fashion technique. I flushed the affected area with copious amounts of sterile saline. Next, I reapproximated the peroneal sheath with 3-0 Vicryl and the subcutaneous structures were reapproximated and coapted utilizing 4-0 Vicryl. Next I identified the anterior aspect of the lateral malleolus and cut through the lateral anterior capsule and the elongated lateral ankle ligaments exposing the anterior and inferior margins of the distal fibula. I reflected the anterior talofibular ligament off the anterior aspect of the distal fibula. Next, 2-0 Orthocord to stabilize the ligament in a pants over vest fashion with the foot everted and dorsiflexed. Next, I advanced the lateral ankle ligament and retinaculum to the fibula. Excellent improvement was noted as far as the clinical anterior drawer and talar tilt. Next the subcutaneous structures were reapproximated and coapted utilizing 4-0 Vicryl. I reapproximated the skin with 4.0 Monocryl in running subcuticular suture fashion technique. Upon completion of the procedure, the incisions were all dressed with 1/4 inch Steri Strips, Adaptic, 4x4s, Kerlix, and Coban. The pneumatic thigh tourniquet was then deflated and a prompt hyperemic response was noted to all digits of the affected foot. A posterior splint was then applied. The patient did very well with the procedure and the anesthesia. The patient was transferred to the recovery room with vital signs stable and vascular status intact to all toes of the affected foot. Following a period of postoperative monitoring, the patient will be discharged home on the following written and oral postoperative instructions: 1. The patient should keep the dressing clean, dry, and intact. Use a cast protector bag with showers. 2. The patient will be strictly nonweightbearing with a knee scooter.
[2024-03-15] MEDS: fentaNYL CITRATE INJ (*CRX) 100 MCG/2 ML VIAL 25 MCG IV PUSH ×4 (11:53→12:13)
[2024-03-15] MEDS: ONDANSETRON INJ 4 MG/2 ML VIAL IV PUSH (13:07)
[2024-03-15] MEDS: HYDROcodone/acetaminophen (*CRX) 5-325 MG TABLET 1 TAB PO (13:29)
== END 2024-03-15 14:07 | disposition home or self-care (01) ==
PROVIDERS: PCP Family Medicine; Visit Provider Podiatrist Foot & Ankle Surgery
PROC: (CPT 27650; principal; 2024-03-15 10:00)
DX: M76.72 Peroneal tendinitis, left leg (principal); M25.372 Other instability, left ankle; Z85.3 Personal history of malignant neoplasm of breast; E66.9 Obesity, unspecified; Z68.31 Body mass index [BMI] 31.0-31.9, adult
CPT/HCPCS: 27899; 27698; 27658; A9270; J0690; J2003; J2405; J3010; J7120